=== PATIENT | female | born 1980 ===

== ENCOUNTER 2021-01-13 16:06 | Inpatient (IN) | payer MEDICAID, OTHER ==
[~2021-01-13] VITALS: Ht 172.7 cm; Wt 125.5 kg
[2021-01-13] MEDS ORDERED: HEPARIN SODIUM (PORCINE) 5000 UNITS/ML 1ML VIAL IV ONE (16:30)
[2021-01-13] MEDS ORDERED: ASPirin 81 mg TAB PO ONE (16:45)
[2021-01-13] MEDS ORDERED: HEPARIN IN NS 1000Units/500mL 1,500 ML ONE (16:46)
[2021-01-13] MEDS ORDERED: LIDOCAINE 2%HCL (LOCAL ANESTH.) INJ 20ML MDV ONE (16:46)
[2021-01-13] MEDS ORDERED: HEPARIN SODIUM (PORCINE) 5000 UNITS/ML 1ML VIAL ONE (16:48)
[2021-01-13] MEDS ORDERED: VERAPAMIL 2.5MG/ML INJ 2ML VIAL IV ONE (16:48)
[2021-01-13] MEDS ORDERED: MIDAZOLAM HCL 2MG/2ML 2ml VIAL (1mg/ml) ONE (16:48)
[2021-01-13] MEDS ORDERED: ANGIOMAX 250 MG VIAL IV ONE (16:48)
[2021-01-13] MEDS ORDERED: fentaNYL CITRATE 100 MCG/2 ML VL ONE (16:48)
[2021-01-13] MEDS ORDERED: SODIUM CHL 0.9% 0 ML ONE (16:49)
[2021-01-13 16:57] LABS: Basophils # (auto) 0.1 10 ^3/uL (0-0.2); Eosinophils # (auto) 0 10 ^3/uL (0-0.8); Nucleated Red Blood Cells % 0.1 %; White Blood Cell 17.8 10^3/uL (4.4-10.8)
[2021-01-13 16:59] LABS: Basophils % (auto) 0.4 % (0.0-2.0); Hematocrit 43.1 % (36.0-46.0); Hemoglobin 14.1 g/dL (12.2-16.2); Lymphocytes # (auto) 1.8 10 ^3/uL (0.4-5.4); Lymphocytes % (auto) 10.2 % (10.0-50.0); Mean Corpuscular Hgb Conc. 32.6 g/dL (32.0-36.0); Mean Corpuscular Volume 76.5 fL (80.0-100.0); Monocytes % (auto) 11.4 % (0.0-12.0); Neutrophils # (auto) 13.9 10 ^3/uL (1.6-8.6); Red Blood Cells 5.63 10^6/uL (4.0-5.20); Red Cell Distribution Width 18.8 % (11.8-14.3)
[2021-01-13 17:09] LABS: Urine Bacteria NONE SEEN /hpf (None Seen); Urine Blood Negative /uL (Negative); Urine Hyaline Cast FEW /lpf (0 - 2); Urine Mucus FEW (None Seen); Urine Specific Gravity 1.042 (1.001-1.035); Urine WBC 1 /hpf (0 - 5)
[2021-01-13] MEDS ORDERED: IOHEXOL 350 MG/ML 100ML IJ ONE ×2 (17:12→17:31)
[2021-01-13 17:15] LABS: Albumin 3.4 g/dL (3.4-5.0); BUN/Creatinine Ratio 8.5; Calcium 9.4 mg/dL (8.5-10.1); Potassium 3.9 mmol/L (3.5-5.1)
[2021-01-13 17:19] LABS: INR 1.13 (0.9-1.15); Partial Thromboplastin Time 29.8 sec (23.6-33.0)
[2021-01-13 17:21] LABS: Bilirubin, Total 2.1 mg/dL (0.2-1.0); Total Protein 9.4 g/dL (6.4-8.2)
[2021-01-13] MEDS ORDERED: IODIXANOL 320MG/ML 100ML BTL IV ONE (17:24)
[2021-01-13] MEDS ORDERED: NITROGLYCERIN 0.4 MG SL TAB SL PRN (18:45)
[2021-01-13 19:30] VITALS: BP 138/98
[2021-01-13] MEDS: MORPHINE SULFATE INJECTION 2 MG/2 ML SYRG IV PRN (19:53)
[2021-01-13 22:04] VITALS: BP 138/98
[2021-01-14] MEDS: MORPHINE SULFATE INJECTION 2 MG/2 ML SYRG IV PRN ×2 (04:55→13:28)
[2021-01-14 05:00] VITALS: BP 127/82
[2021-01-14 09:00] VITALS: BP 126/96
[2021-01-14] MEDS ORDERED: AZITHROMYCIN 500MG/ 250ML 250 ML IV ONE (10:30)
[2021-01-14] MEDS ORDERED: cefTRIAXone 1GM/50ML D5W 50 ML IV ONE (10:30)
[2021-01-14 11:04] LABS: Urine Bacteria NONE SEEN /hpf (None Seen); Urine Blood Negative /uL (Negative); Urine Mucus FEW (None Seen); Urine WBC 3 /hpf (0 - 5)
[2021-01-14 11:17] LABS: Urine Specific Gravity > 1.050 (1.001-1.035)
[2021-01-14 11:37] LABS: Amphetamine Screen, Urine NEGATIVE (NEGATIVE); Barbiturate Scree,Urine NEGATIVE (NEGATIVE); Benzodiazephine Screen, Urine POSITIVE (NEGATIVE); Cannabinoid Screen, Urine POSITIVE (NEGATIVE)
[2021-01-14 11:43] LABS: Cocaine Screen, Urine NEGATIVE (NEGATIVE); Opiate Scree,Urine POSITIVE (NEGATIVE); Phencyclidine Screen, Urine NEGATIVE (NEGATIVE)
[2021-01-14 12:37] VITALS: BP 124/94
[2021-01-14] MEDS: ALBUTEROL SULF 2.5 MG/0.5ML(0.5%) NEB SOLN NEB SCH ×2 (14:12→19:34)
[2021-01-14] MEDS: IPRATROPIUM BROM 0.5 MG/2.5ML INH SOL NEB SCH ×2 (14:12→19:34)
[2021-01-14 16:27] VITALS: BP 124/94
[2021-01-14 16:58] VITALS: BP 112/90
[2021-01-14 22:00] VITALS: BP 130/96
[2021-01-15] MEDS: MORPHINE SULFATE INJECTION 2 MG/2 ML SYRG IV PRN (03:57)
[2021-01-15 05:00] VITALS: BP 110/71
[2021-01-15 05:43] LABS: Hemoglobin 12.2 g/dL (12.2-16.2); Mean Corpuscular Hgb Conc. 32.8 g/dL (32.0-36.0)
[2021-01-15 05:45] LABS: Hematocrit 37.1 % (36.0-46.0); Mean Corpuscular Hemoglobin 25.3 pg (28.0-32.0); Red Blood Cells 4.82 10^6/uL (4.0-5.20); Red Cell Distribution Width 18.7 % (11.8-14.3); White Blood Cell 12.8 10^3/uL (4.4-10.8)
[2021-01-15 06:10] LABS: Basophils % (manual) 0 (0.0-2.0); Blast Cells 0; Eosinophils % (manual) 0 (0-7); Myelocytes % 0; Promyelocytes % 0
[2021-01-15 06:21] LABS: BUN/Creatinine Ratio 8.9; Calcium 8.9 mg/dL (8.5-10.1); Potassium 3.4 mmol/L (3.5-5.1)
[2021-01-15] MEDS: ALBUTEROL SULF 2.5 MG/0.5ML(0.5%) NEB SOLN NEB SCH ×3 (06:30→18:55)
[2021-01-15] MEDS: IPRATROPIUM BROM 0.5 MG/2.5ML INH SOL NEB SCH ×3 (06:30→18:55)
[2021-01-15 09:00] VITALS: BP 120/65
[2021-01-15] MEDS: cefTRIAXone 1GM/50ML D5W 50 ML IV SCH (09:07)
[2021-01-15] MEDS ORDERED: AZITHROMYCIN 500MG/ 250ML 250 ML IV SCH (10:00)
[2021-01-15] MEDS ORDERED: ZINC SULFATE 220mg CAP or TAB PO SCH (10:00)
[2021-01-15] MEDS ORDERED: POTASSIUM CHL 20 Meq TABLET PO ONE (10:00)
[2021-01-15] MEDS: CHOLECALCIFEROL (VITD3) 2,000 UNIT CAP/TAB PO SCH (10:18)
[2021-01-15] MEDS: ASCORBIC ACID 500 MG TAB PO SCH ×2 (10:18→21:51)
[2021-01-15 10:34] LABS: Band Neutrophils % (manual) 4; Lymphocytes % (manual) 14 (10.0-50.0); Metamyelocytes % 2; Monocytes % (manual) 14 (0-12); Reactive Lymphocytes 1
[2021-01-15 13:00] VITALS: BP 124/83
[2021-01-15 17:00] VITALS: BP 122/68
[2021-01-15 22:00] VITALS: BP 136/76
[2021-01-16 05:00] VITALS: BP 133/76
[2021-01-16 05:20] LABS: Basophils # (auto) 0 10 ^3/uL (0-0.2); Eosinophils # (auto) 0 10 ^3/uL (0-0.8); Nucleated Red Blood Cells % 0.1 %
[2021-01-16 05:30] LABS: Basophils % (auto) 0.5 % (0.0-2.0); Eosinophils % (auto) 0.3 % (0.0-7.0); Hematocrit 35.3 % (36.0-46.0); Hemoglobin 11.6 g/dL (12.2-16.2); Lymphocytes # (auto) 1.8 10 ^3/uL (0.4-5.4); Lymphocytes % (auto) 18.7 % (10.0-50.0); Mean Corpuscular Hemoglobin 25.3 pg (28.0-32.0); Mean Corpuscular Hgb Conc. 32.8 g/dL (32.0-36.0); Mean Corpuscular Volume 77.4 fL (80.0-100.0); Monocytes # (auto) 1.4 10 ^3/uL (0-1.3); Monocytes % (auto) 14.4 % (0.0-12.0); Neutrophils # (auto) 6.4 10 ^3/uL (1.6-8.6); Neutrophils % (auto) 66.1 % (37.0-80.0); Red Blood Cells 4.57 10^6/uL (4.0-5.20); Red Cell Distribution Width 18.9 % (11.8-14.3); White Blood Cell 9.7 10^3/uL (4.4-10.8)
[2021-01-16 05:46] LABS: Potassium 3.3 mmol/L (3.5-5.1)
[2021-01-16 05:48] LABS: BUN/Creatinine Ratio 9.9
[2021-01-16] MEDS: IPRATROPIUM BROM 0.5 MG/2.5ML INH SOL NEB SCH ×3 (07:10→18:24)
[2021-01-16] MEDS: ALBUTEROL SULF 2.5 MG/0.5ML(0.5%) NEB SOLN NEB SCH ×3 (07:10→18:24)
[2021-01-16] MEDS: cefTRIAXone 1GM/50ML D5W 50 ML IV SCH (08:54)
[2021-01-16 09:00] VITALS: BP 129/63
[2021-01-16] MEDS ORDERED: PANTOPRAZOLE 40 MG TAB PO ONE (09:45)
[2021-01-16] MEDS ORDERED: methylPREDNISolone SOD SUCC 125 MG/2 ML VL IV ONE (09:45)
[2021-01-16] MEDS ORDERED: POTASSIUM CHL 20 Meq TABLET PO ONE (09:45)
[2021-01-16] MEDS: AZITHROMYCIN 250 MG TAB PO SCH (10:00)
[2021-01-16] MEDS: ASCORBIC ACID 500 MG TAB PO SCH ×2 (10:10→21:08)
[2021-01-16] MEDS: CHOLECALCIFEROL (VITD3) 2,000 UNIT CAP/TAB PO SCH (10:10)
[2021-01-16 13:00] VITALS: BP 122/72
[2021-01-16 17:00] VITALS: BP 129/85
[2021-01-16] MEDS: methylPREDNISolone SOD SUCC 40 MG/ML VL IV SCH (21:08)
[2021-01-16 22:00] VITALS: BP 164/88
[2021-01-17 05:00] VITALS: BP 145/84
[2021-01-17 09:00] VITALS: BP 151/82
[2021-01-17 09:07] VITALS: BP 145/85
[2021-01-17] MEDS: cefTRIAXone 1GM/50ML D5W 50 ML IV SCH (09:12)
[2021-01-17] MEDS ORDERED: PANTOPRAZOLE 40 MG TAB PO SCH (10:00)
[2021-01-17] MEDS: ALBUTEROL SULF 2.5 MG/0.5ML(0.5%) NEB SOLN NEB SCH ×2 (10:07→12:51)
[2021-01-17] MEDS: IPRATROPIUM BROM 0.5 MG/2.5ML INH SOL NEB SCH ×2 (10:08→12:51)
[2021-01-17] MEDS: methylPREDNISolone SOD SUCC 40 MG/ML VL IV SCH (10:26)
[2021-01-17] MEDS: CHOLECALCIFEROL (VITD3) 2,000 UNIT CAP/TAB PO SCH (10:26)
[2021-01-17] MEDS: AZITHROMYCIN 250 MG TAB PO SCH (10:26)
[2021-01-17] MEDS: ASCORBIC ACID 500 MG TAB PO SCH (10:26)
[2021-01-17 10:52] VITALS: BP 151/82
== END 2021-01-17 14:11 | disposition home or self-care (01) | DRG 871 ==
LOC: ER 16:06 → TELE 18:43 → TELE-CENTR 19:35
PROVIDERS: ADMIT Internal Medicine; ATTEND Internal Medicine
PROC: B211YZZ Fluoroscopy of Multiple Coronary Arteries using Other Contrast (ICD-10-PCS; principal; 2021-01-13)
DX: A41.9 Sepsis, unspecified organism (principal); J18.9 Pneumonia, unspecified organism; I21.3 ST elevation (STEMI) myocardial infarction of unspecified site; Z68.41 Body mass index [BMI] 40.0-44.9, adult; I10 Essential (primary) hypertension; Z20.822 Contact with and (suspected) exposure to COVID-19; E66.01 Morbid (severe) obesity due to excess calories; E78.5 Hyperlipidemia, unspecified; F12.90 Cannabis use, unspecified, uncomplicated; F17.210 Nicotine dependence, cigarettes, uncomplicated; I25.10 Atherosclerotic heart disease of native coronary artery without angina pectoris; Z79.899 Other long term (current) drug therapy
CPT/HCPCS: 36415; 71046; 71275; 80048; 80053; 80307; 81001; 84443; 84484; 85007; 85025; 85027; 85610; 85730; 87426; 93005; 93306; 94640; 96365; 96367; 96375; 99152; 99291; G0378; J0696; J2250; Q9967